=== PATIENT | female | born 1945 | race Caucasian/White ===

== ENCOUNTER 2021-02-18 14:00 | Observation (INO) | payer OTHER, MEDICAID ==
[~2021-02-18] VITALS: Ht 162.6 cm; Wt 87.0 kg
--- NOTE | 2021-02-18 14:19 | PHYS DOC ---
Past Medical History Past Medical History: Bipolar, COPD, Diabetes-Type II, Hypertension, Hypo thyroid, Seizure, Vascular Disease Additional Past Medical Histor: SPINAL STENOSIS, Past Surgical History: Other Additional Past Surgical Histo: UNK Smoking Status: Never Smoker Alcohol Use: None Drug Use: None General Adult EDM: Chief Complaint: MECHANICAL FALL HPI: HPI: Patient is a 75-year-old female that presents today after experiencing a fall. Patient was brought to the emergency department by [facility] fire department from the [facility] [place]. Per the report from EMS patient had an unwitnessed fall when transferring from bed to wheelchair, patient now complaining of right upper arm pain. After speaking to the patient patient states she got up out of bed and everything went black and she fell. Patient has never been to [facility] in the past. Patient also has some redness in her left upper arm she states that is from an injection she received a couple days ago. Review of Systems: Review of Systems: Constitutional: Denies fever or chills. [] Eyes: Denies change in visual acuity. [] HENT: Denies nasal congestion or sore throat. [] Respiratory: Denies cough or shortness of breath. [] Cardiovascular: Denies chest pain or edema. [] GI: Denies abdominal pain, nausea, vomiting, bloody stools or diarrhea. [] : Denies dysuria. [] Musculoskeletal: RIGHT ARM PAIN, Integument: Denies rash. [] Neurologic: Denies headache, focal weakness or sensory changes. [] Endocrine: Denies polyuria or polydipsia. [] Lymphatic: Denies swollen glands. [] Psychiatric: Denies depression or anxiety. [] Heart Score: C/O Chest Pain: N/A Risk Factors: Risk Factors: DM, Current or recent (<one month) smoker, HTN, HLP, family history of CAD, obesity. Risk Scores: Score 0 - 3: 2.5% MACE over next 6 weeks - Discharge Home Score 4 - 6: 20.3% MACE over next 6 weeks - Admit for Clinical Observation Score 7 - 10: 72.7% MACE over next 6 weeks - Early Invasive Strategies Allergies: Allergies: Allergies Coded Allergies Type Severity Reaction Last Updated Verified Penicillins Allergy Unknown 02/18/21 Yes Seroquel Allergy Unknown 02/18/21 Yes Soy Allergy Unknown 02/18/21 Yes Physical Exam: PE: Constitutional: Well developed, well nourished, no acute distress, non-toxic appearance. [] HENT: Normocephalic, atraumatic, bilateral external ears normal, oropharynx moist, no oral exudates, nose normal. [] Eyes: PERRLA, EOMI, conjunctiva normal, no discharge. [] Neck: Normal range of motion, tenderness noted along the left trapizius area, no pain midline. Cardiovascular:Heart rate regular rhythm, no murmur [] Lungs & Thorax: Bilateral breath sounds clear to auscultation [] Abdomen: Bowel sounds normal, soft, no tenderness, no masses, no pulsatile masses. [] Skin: Injection site noted in the left upper arm with erythema noted. Back: No tenderness, no CVA tenderness. [] Extremities: Right upper arm pain with palpation noted, no ecchymosis some swelling noted, radial pulse bilateral arms 2+, cap refill less than 2 seconds, sensory intact distal to injury on the right arm Neurologic: Alert and oriented X 3, normal motor function, normal sensory function, no focal deficits noted. [] Psychologic: Affect normal, judgement normal, mood normal. [] Current Patient Data: Labs: Laboratory Tests Test 02/18/21 14:40 02/18/21 15:30 02/18/21 16:20 White Blood Count 6.5 x10^3/uL Red Blood Count 3.57 x10^6/uL Hemoglobin 12.0 g/dL Hematocrit 34.8 % Mean Corpuscular Volume 97 fL Mean Corpuscular Hemoglobin 34 pg Mean Corpuscular Hemoglobin Concent 35 g/dL Red Cell Distribution Width 13.0 % Platelet Count 169 x10^3/uL Neutrophils (%) (Auto) 54 % Lymphocytes (%) (Auto) 29 % Monocytes (%) (Auto) 13 % Eosinophils (%) (Auto) 3 % Basophils (%) (Auto) 1 % Neutrophils # (Auto) 3.5 x10^3/uL Lymphocytes # (Auto) 1.9 x10^3/uL Monocytes # (Auto) 0.9 x10^3/uL Eosinophils # (Auto) 0.2 x10^3/uL Basophils # (Auto) 0.0 x10^3/uL Sodium Level 135 mmol/L Potassium Level 4.5 mmol/L Chloride Level 99 mmol/L Carbon Dioxide Level 33 mmol/L Anion Gap 3 Blood Urea Nitrogen 10 mg/dL Creatinine 0.8 mg/dL Estimated GFR (Cockcroft-Gault) 69.6 BUN/Creatinine Ratio 13 Glucose Level 120 mg/dL Calcium Level 8.6 mg/dL Total Bilirubin 0.8 mg/dL Aspartate Amino Transf (AST/SGOT) 43 U/L Alanine Aminotransferase (ALT/SGPT) 56 U/L Alkaline Phosphatase 89 U/L Troponin I High Sensitivity < 4 ng/L Total Protein 6.6 g/dL Albumin 3.0 g/dL Albumin/Globulin Ratio 0.8 SARS-CoV-2 Antigen (Rapid) Negative Urine Collection Type Unknown Urine Color Yellow Urine Clarity Clear Urine pH 6.0 Urine Specific [place] <=1.005 Urine Protein Negative mg/dL Urine Glucose (UA) Negative mg/dL Urine Ketones (Stick) Negative mg/dL Urine Blood Moderate Urine Nitrite Negative Urine Bilirubin Negative Urine Urobilinogen Dipstick 0.2 mg/dL Urine Leukocyte Esterase Negative Urine RBC 6-10 /HPF Urine WBC 0 /HPF Urine Squamous Epithelial Cells Few /LPF Urine Bacteria Few /HPF Vital Signs: Vital Signs Date Time Temp Pulse Resp B/P (MAP) Pulse Ox O2 Delivery O2 Flow Rate FiO2 02/18/21 18:07 Room Air 02/18/21 17:37 60 20 152/68 (96) 96 Room Air 02/18/21 16:37 60 16 136/63 (87) 96 Room Air 02/18/21 16:07 56 19 152/68 (96) 97 Room Air 02/18/21 15:37 58 19 161/71 (101) 97 Room Air 02/18/21 15:07 61 19 133/62 (85) 98 Room Air 02/18/21 14:41 62 14 134/74 (94) 94 Room Air 02/18/21 14:00 98.0 66 18 128/60 (82) 98 Room Air 98.0 EKG: EKG: EKG done at [address] Desir at 1417 A. fib rate of 60 [] Radiology/Procedures: Radiology/Procedures: [REASON: fall, right humeral head pain PROCEDURE: HUMERUS RIGHT Right humerus 2 views. HISTORY: Pain, fall 2 views were taken of the right humerus. There is an old healed fracture of the mid to proximal right humerus. An acute fracture is not identified. There is no dislocation at the shoulder. IMPRESSION: 1. Old healed right humerus fracture. 2. No acute fracture noted. Electronically signed by: Andrew Thorpe MD (02/18/2021 2:49 PM) [facility]] PROCEDURE: CHEST AP ONLY AP chest. HISTORY: Fall, right humeral head pain AP view was taken of the chest. Patient's taken a very poor inspiration. There is crowding of the vasculature with mild atelectasis in the lung bases. There are no confluent infiltrates. There is no pneumothorax. Heart is normal in size. IMPRESSION: 1. Poor inspiration. Mild atelectasis without other infiltrates. Electronically signed by: Andrew Thorpe MD (02/18/2021 2:49 PM) [facility] REASON: fall with LOC PROCEDURE: CT HEAD AND CERVICAL SPINE WO Examination: CT head and cervical spine without contrast CT HEAD INDICATION: Reason: fall with LOC / Spl. Instructions: / History: COMPARISON: None Available. Exposure: One or more of the following individualized dose reduction techniques were utilized for this examination: 1. Automated exposure control 2. Adjustment of the mA and/or kV according to patient size 3. Use of iterative reconstruction technique TECHNIQUE: 5 mm contiguous axial images were obtained from the skull base to the vertex in both bone and soft tissue algorithm. FINDINGS: No abnormal attenuation within the brain parenchyma. No evidence of acute intracranial hemorrhage. No extra-axial fluid collections. No mass effect or midline shift. Ventricular size is appropriate. Basal cisterns are patent. No fractures identified.Argueta-white differentiation is preserved.Globes and orbits are within normal limits. Paranasal sinuses and mastoid air cells are clear. CT CERVICAL SPINE INDICATION: Reason: fall with LOC / Spl. Instructions: / History: COMPARISON: None Available. Technique: 2.5 mm contiguous axial images were obtained from the skull base through the cervicothoracic junction in both bone and soft tissue algorithm. Additional sagittal and coronal reconstructions were also performed. FINDINGS: Vertebral body height and alignment are maintained. Cervical lordosis is preserved. The lateral masses of C1 are aligned upon C2. No fractures identified. The bony canal is patent throughout. Moderate intervertebral disc height loss identified in the cervical spine likely degenerative changes. The paraspinous soft tissues are unremarkable. Visualized intracranial contents are unremarkable. Lung apices are clear. IMPRESSION: 1. No acute intracranial findings. 2. No acute fracture cervical spine. 3. Moderate degenerative changes cervical spine. Electronically signed by: Jesus Rodriguez MD (02/18/2021 3:35 PM) [id number] DICTATED and SIGNED BY: JESUS RODRIGUEZ MD DATE: 02/18/21 [id number] 0 Course & Med Decision Making: Course & Med Decision Making Pertinent Labs and Imaging studies reviewed. (See chart for details) 1700 patient up to bedside commode patient states she feels dizzy and feels like she is going to pass out, spoke to Dr. Ambriz with hospitalist group they agreed to admission for syncopal episode. Patient informed of plan of care and she is agreeable for admission status Per the documentation from [facility] patient is a DNR [] Santos Disclaimer: Santos Disclaimer: This electronic medical record was generated, in whole or in part, using a voice recognition dictation system. Departure Departure Impression: Primary Impression: Syncopal episodes Qualified Codes: R55 - Syncope and collapse Disposition: ADMITTED INPATIENT Admitting Physician: BEAR Condition: STABLE LANE ULRICH MOUNTER SMOKING PIPE Feb 18, 2021 14:19
[2021-02-18 14:50] LABS: BASO % 1 % (0-3); EOS # 0.2 x10^3/uL (0.0-0.7); EOS % 3 % (0-3); HEMATOCRIT 34.8 % (36.0-47.0); LYMPH # 1.9 x10^3/uL (1.0-4.8); LYMPH % 29 % (24-48); MEAN CORPUSCULAR HEMOGLOBIN 34 pg (25-35); MEAN CORPUSCULAR HGB CONC 35 g/dL (31-37); MEAN CORPUSCULAR VOLUME 97 fL (79-100); MONO # 0.9 x10^3/uL (0.0-1.1); MONO % 13 % (0-9); NEUT # 3.5 x10^3/uL (1.8-7.7); NEUT % 54 % (31-73); PLATELET COUNT 169 x10^3/uL (140-400); RED BLOOD COUNT 3.57 x10^6/uL (3.50-5.40); WHITE BLOOD COUNT 6.5 x10^3/uL (4.0-11.0)
--- NOTE | 2021-02-18 14:51 | RAD ---
AP chest. HISTORY: Fall, right humeral head pain AP view was taken of the chest. Patient's taken a very poor inspiration. There is crowding of the vas culature with mild atelectasis in the lung bases. There are no confluent infiltrates. There is no pne umothorax. Heart is normal in size. IMPRESSION: 1. Poor inspiration. Mild atelectasis without other infiltrates. Electronically signed by: Andrew Thorpe MD (02/18/2021 2:49 PM) [facility]
--- NOTE | 2021-02-18 14:52 | RAD ---
Right humerus 2 views. HISTORY: Pain, fall 2 views were taken of the right humerus. There is an old healed fracture of the mid to proximal right humerus. An acute fracture is not identified. There is no dislocation at the shoulder. IMPRESSION: 1. Old healed right humerus fracture. 2. No acute fracture noted. Electronically signed by: Andrew Thorpe MD (02/18/2021 2:49 PM) [facility]
[2021-02-18 14:59] LABS: CALCIUM 8.6 mg/dL (8.5-10.1); CREATININE 0.8 mg/dL (0.6-1.0); GFR 69.6; POTASSIUM 4.5 mmol/L (3.5-5.1)
[2021-02-18 15:05] LABS: ALBUMIN/GLOBULIN RATIO 0.8 (1.0-1.7); TOTAL BILIRUBIN 0.8 mg/dL (0.2-1.0); TOTAL PROTEIN 6.6 g/dL (6.4-8.2)
--- NOTE | 2021-02-18 15:37 | RAD ---
Examination: CT head and cervical spine without contrast CT HEAD INDICATION: Reason: fall with LOC / Spl. Instructions: / History: COMPARISON: None Available. Exposure: One or more of the following individualized dose reduction techniques were utilized for thi s examination: 1. Automated exposure control 2. Adjustment of the mA and/or kV according to patient size 3. Use of iterative reconstruction technique TECHNIQUE: 5 mm contiguous axial images were obtained from the skull base to the vertex in both bone and soft tissue algorithm. FINDINGS: No abnormal attenuation within the brain parenchyma. No evidence of acute intracranial hemorrhage. No extra-axial fluid collections. No mass effect or midline shift. Ventricular size is appropriate. Basal cisterns are patent. No fractures identified.Argueta-white differentiation is preserved.Globes and orbits are within normal l imits. Paranasal sinuses and mastoid air cells are clear. CT CERVICAL SPINE INDICATION: Reason: fall with LOC / Spl. Instructions: / History: COMPARISON: None Available. Technique: 2.5 mm contiguous axial images were obtained from the skull base through the cervicothorac ic junction in both bone and soft tissue algorithm. Additional sagittal and coronal reconstructions were also performed. FINDINGS: Vertebral body height and alignment are maintained. Cervical lordosis is preserved. The l ateral masses of C1 are aligned upon C2. No fractures identified. The bony canal is patent throughout. Moderate intervertebral disc height loss identified in the cervical spine likely degenerative changes . The paraspinous soft tissues are unremarkable. Visualized intracranial contents are unremarkable. L jalen apices are clear. IMPRESSION: 1. No acute intracranial findings. 2. No acute fracture cervical spine. 3. Moderate degenerative changes cervical spine. Electronically signed by: Jesus Rodriguez MD (02/18/2021 3:35 PM) [id number]
[2021-02-18 16:36] LABS: BILIRUBIN,URINE NEGATIVE (NEG); CLARITY,URINE CLEAR; COLOR,URINE YELLOW; NITRITE,URINE NEGATIVE (NEG); PROTEIN,URINE NEGATIVE (NEG-TRACE); UROBILINOGEN,URINE 0.2 mg/dL (0.2 mg/dL)
[2021-02-18 16:47] LABS: BACTERIA,URINE FEW /HPF (0-FEW); WBC,URINE 0 /HPF (0-4)
--- NOTE | 2021-02-18 17:27 | EKG ---
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
[2021-02-18 19:15] VITALS: BP 140/65
--- NOTE | 2021-02-18 20:12 | PDOC1 ---
History and Physical Date of Admission Date of Admission DATE: 02/18/21 TIME: 20:08 Identification/Chief Complaint Chief Complaint fall, syncope Source Source: Chart review, Patient History of Present Illness History of Present Illness Ms. Burnette is a 75-year-old female, hard of hearing, [place] resident for dementia, admit for sycope and fall today./ Brought to ER by EMS for a unwitnessed fall when transferring from bed to wheelchair, patient now complaining of right upper arm pain. She says she falls over whenever someone isnt watching her, she states she got up out of bed and everything went black and she fell. Patient has never been to [facility], she normally gets care at [facility]. Past Medical History Cardiovascular: AFIB, HTN Pulmonary: No pertinent hx CENTRAL NERVOUS SYSTEM: Dementia Past Surgical History Past Surgical History: No pertinent history Social History Smoke: No ALCOHOL: none Drugs: None Current Problem List Problem List Problems Medical Problems: (1) Syncopal episodes Status: Acute Allergies Allergies: Coded Allergies: Penicillins (Verified Allergy, Intermediate, 02/18/21) quetiapine (Verified Allergy, Intermediate, 02/18/21) soy (Verified Allergy, Intermediate, 02/18/21) ROS General: No: Chills, Night Sweats, Fatigue, Malaise, Appetite, Other PSYCHOLOGICAL ROS: No: Anxiety, Behavioral Disorder, Concentration difficultie, Decreased libido, Depression, Disorientation, Hallucinations, Hostility, Irritablity, Memory difficulties, Mood Swings, Obsessive thoughts, Physical abuse, Sexual abuse, Sleep disturbances, Suicidal ideation, Other Eyes: No Blurry vision, No Decreased vision, No Double vision, No Dry eyes, No Excessive tearing, No Eye Pain, No Itchy Eyes, No Loss of vision, No Photophobia, No Scotomata, No Uses contacts, No Uses glasses, No Other HEENT: YES: Heacaches; No: Visual Changes, Hearing change, Nasal congestion, Nasal discharge, Oral lesions, Sinus pain, Sore Throat, Epistaxis, Sneezing, Snoring, Tinnitus, Vertigo, Vocal changes, Other Respiratory: No: Cough, Hemoptysis, Orthopnea, Pleuritic Pain, Shortness of breath, SOB with excertion, Sputum Changes, Stridor, Tachypnea, Wheezing, Other Cardiovascular: No Chest Pain, No Palpitations, No Orthopnea, No Paroxysmal Noc. Dyspnea, No Edema, No Lt Headedness, No Other Gastrointestinal: No Nausea, No Vomiting, No Abdominal Pain, No Diarrhea, No Constipation, No Melena, No Hematochezia, No Other Musculoskeletal: Yes Gait Disturbance, Yes Joint Stiffness; No Joint Pain, No Joint Swelling, No Muscle Pain, No Muscular Weakness, No Pain In:, No Swelling In:, No Other Neurological: Yes Gait Disturbance, Yes Impaired Coord/balance; No Behavorial Changes, No Bowel/Bladder ControlChng, No Confusion, No Dizziness, No Headaches, No Memory Loss, No Numbness/Tingling, No Seizures, No Speech Problems, No Tremors, No Visual Changes, No Weakness, No Other Skin: No Dry Skin, No Eczema, No Hair Changes, No Lumps, No Mole Changes, No Mottling, No Nail Changes, No Pruritus, No Rash, No Skin Lesion Changes, No Other, No Acne Physical Exam General: Alert, Cooperative, No acute distress, Other (orietned 3/4, poor recall to some) HEENT: EOMI, Mucous membr. moist/pink Heart: no gallops, no murmurs, irregularly irregular Abdomen: Soft Extremities: No cyanosis, Normal pulses Skin: No significant lesion Neuro: Normal speech, Normal tone, Sensation intact Vitals Vitals Vital Signs Date Time Temp Pulse Resp B/P (MAP) Pulse Ox O2 Delivery O2 Flow Rate FiO2 02/18/21 19:15 97.9 59 18 140/65 (90) 94 Room Air 97.9 Labs Labs Laboratory Tests Test 02/18/21 14:40 02/18/21 15:30 02/18/21 16:20 02/18/21 19:50 White Blood Count 6.5 x10^3/uL (4.0-11.0) Red Blood Count 3.57 x10^6/uL (3.50-5.40) Hemoglobin 12.0 g/dL (12.0-15.5) Hematocrit 34.8 % (36.0-47.0) Mean Corpuscular Volume 97 fL (79-100) Mean Corpuscular Hemoglobin 34 pg (25-35) Mean Corpuscular Hemoglobin Concent 35 g/dL (31-37) Red Cell Distribution Width 13.0 % (11.5-14.5) Platelet Count 169 x10^3/uL (140-400) Neutrophils (%) (Auto) 54 % (31-73) Lymphocytes (%) (Auto) 29 % (24-48) Monocytes (%) (Auto) 13 % (0-9) Eosinophils (%) (Auto) 3 % (0-3) Basophils (%) (Auto) 1 % (0-3) Neutrophils # (Auto) 3.5 x10^3/uL (1.8-7.7) Lymphocytes # (Auto) 1.9 x10^3/uL (1.0-4.8) Monocytes # (Auto) 0.9 x10^3/uL (0.0-1.1) Eosinophils # (Auto) 0.2 x10^3/uL (0.0-0.7) Basophils # (Auto) 0.0 x10^3/uL (0.0-0.2) Sodium Level 135 mmol/L (136-145) Potassium Level 4.5 mmol/L (3.5-5.1) Chloride Level 99 mmol/L (98-107) Carbon Dioxide Level 33 mmol/L (21-32) Anion Gap 3 (6-14) Blood Urea Nitrogen 10 mg/dL (7-20) Creatinine 0.8 mg/dL (0.6-1.0) Estimated GFR (Cockcroft-Gault) 69.6 BUN/Creatinine Ratio 13 (6-20) Glucose Level 120 mg/dL (70-99) Calcium Level 8.6 mg/dL (8.5-10.1) Total Bilirubin 0.8 mg/dL (0.2-1.0) Aspartate Amino Transf (AST/SGOT) 43 U/L (15-37) Alanine Aminotransferase (ALT/SGPT) 56 U/L (14-59) Alkaline Phosphatase 89 U/L (46-116) Troponin I High Sensitivity < 4 ng/L (4-50) Total Protein 6.6 g/dL (6.4-8.2) Albumin 3.0 g/dL (3.4-5.0) Albumin/Globulin Ratio 0.8 (1.0-1.7) SARS-CoV-2 Antigen (Rapid) Negative (NEGATIVE) Urine Collection Type Unknown Urine Color Yellow Urine Clarity Clear Urine pH 6.0 (<5.0-8.0) Urine Specific [place] <=1.005 (1.000-1.030) Urine Protein Negative mg/dL (NEG-TRACE) Urine Glucose (UA) Negative mg/dL (NEG) Urine Ketones (Stick) Negative mg/dL (NEG) Urine Blood Moderate (NEG) Urine Nitrite Negative (NEG) Urine Bilirubin Negative (NEG) Urine Urobilinogen Dipstick 0.2 mg/dL (0.2 mg/dL) Urine Leukocyte Esterase Negative (NEG) Urine RBC 6-10 /HPF (0-2) Urine WBC 0 /HPF (0-4) Urine Squamous Epithelial Cells Few /LPF Urine Bacteria Few /HPF (0-FEW) Glucose (Fingerstick) 100 mg/dL (70-99) Laboratory Tests Test 02/18/21 14:40 02/18/21 15:30 02/18/21 16:20 02/18/21 19:50 White Blood Count 6.5 x10^3/uL (4.0-11.0) Red Blood Count 3.57 x10^6/uL (3.50-5.40) Hemoglobin 12.0 g/dL (12.0-15.5) Hematocrit 34.8 % (36.0-47.0) Mean Corpuscular Volume 97 fL (79-100) Mean Corpuscular Hemoglobin 34 pg (25-35) Mean Corpuscular Hemoglobin Concent 35 g/dL (31-37) Red Cell Distribution Width 13.0 % (11.5-14.5) Platelet Count 169 x10^3/uL (140-400) Neutrophils (%) (Auto) 54 % (31-73) Lymphocytes (%) (Auto) 29 % (24-48) Monocytes (%) (Auto) 13 % (0-9) Eosinophils (%) (Auto) 3 % (0-3) Basophils (%) (Auto) 1 % (0-3) Neutrophils # (Auto) 3.5 x10^3/uL (1.8-7.7) Lymphocytes # (Auto) 1.9 x10^3/uL (1.0-4.8) Monocytes # (Auto) 0.9 x10^3/uL (0.0-1.1) Eosinophils # (Auto) 0.2 x10^3/uL (0.0-0.7) Basophils # (Auto) 0.0 x10^3/uL (0.0-0.2) Sodium Level 135 mmol/L (136-145) Potassium Level 4.5 mmol/L (3.5-5.1) Chloride Level 99 mmol/L (98-107) Carbon Dioxide Level 33 mmol/L (21-32) Anion Gap 3 (6-14) Blood Urea Nitrogen 10 mg/dL (7-20) Creatinine 0.8 mg/dL (0.6-1.0) Estimated GFR (Cockcroft-Gault) 69.6 BUN/Creatinine Ratio 13 (6-20) Glucose Level 120 mg/dL (70-99) Calcium Level 8.6 mg/dL (8.5-10.1) Total Bilirubin 0.8 mg/dL (0.2-1.0) Aspartate Amino Transf (AST/SGOT) 43 U/L (15-37) Alanine Aminotransferase (ALT/SGPT) 56 U/L (14-59) Alkaline Phosphatase 89 U/L (46-116) Troponin I High Sensitivity < 4 ng/L (4-50) Total Protein 6.6 g/dL (6.4-8.2) Albumin 3.0 g/dL (3.4-5.0) Albumin/Globulin Ratio 0.8 (1.0-1.7) SARS-CoV-2 Antigen (Rapid) Negative (NEGATIVE) Urine Collection Type Unknown Urine Color Yellow Urine Clarity Clear Urine pH 6.0 (<5.0-8.0) Urine Specific [place] <=1.005 (1.000-1.030) Urine Protein Negative mg/dL (NEG-TRACE) Urine Glucose (UA) Negative mg/dL (NEG) Urine Ketones (Stick) Negative mg/dL (NEG) Urine Blood Moderate (NEG) Urine Nitrite Negative (NEG) Urine Bilirubin Negative (NEG) Urine Urobilinogen Dipstick 0.2 mg/dL (0.2 mg/dL) Urine Leukocyte Esterase Negative (NEG) Urine RBC 6-10 /HPF (0-2) Urine WBC 0 /HPF (0-4) Urine Squamous Epithelial Cells Few /LPF Urine Bacteria Few /HPF (0-FEW) Glucose (Fingerstick) 100 mg/dL (70-99) VTE Prophylaxis Ordered VTE Prophylaxis Devices: No VTE Pharmacological Prophylaxi: Yes Assessment/Plan Assessment/Plan sycnope, obs on tele 23 hrs. check TSH, follow labs, PT and ot eval ortho statics Dm2, obese, BMI 31 dementia [place] resident Justifications for Admission Other Justification LUCAS PINO MD Feb 18, 2021 20:12
[2021-02-18] MEDS ORDERED: DEXTROSE 50% 25 GM / 50ML DISP.SYRIN. IV PRN (20:15)
[2021-02-18] MEDS ORDERED: DOCUSATE SODIUM 100 MG CAPSULE. PO PRN (20:15)
[2021-02-18] MEDS: ENOXAPARIN 40 MG/0.4 ML SYRINGE. SQ SCH (21:08)
[2021-02-18 23:29] VITALS: BP 125/63
[2021-02-19 03:12] VITALS: BP 139/63
[2021-02-19] MEDS ORDERED: CALCIUM CARBONATE 500 MG TABLET PO PRN (03:15)
[2021-02-19] MEDS ORDERED: BENZ1TAB5 PO (03:20)
[2021-02-19] MEDS ORDERED: LISI2.5T12 PO (03:20)
[2021-02-19] MEDS ORDERED: FLUT16SP NS (03:20)
[2021-02-19] MEDS ORDERED: POTA10TA12 PO (03:20)
[2021-02-19] MEDS ORDERED: DIVA500T4 PO (03:20)
[2021-02-19] MEDS ORDERED: TRAZ-118 PO (03:20)
[2021-02-19] MEDS ORDERED: NICO1PAT21 TP (03:20)
[2021-02-19] MEDS ORDERED: ARIP15TA3 PO (03:20)
[2021-02-19] MEDS ORDERED: FLUT1BLS3 IH (03:20)
[2021-02-19] MEDS ORDERED: MELA3TAB43 PO (03:20)
[2021-02-19] MEDS ORDERED: SITA50TA PO (03:20)
[2021-02-19] MEDS ORDERED: CALC500T31 PO (03:20)
[2021-02-19] MEDS ORDERED: ASPI-630 PO (03:20)
[2021-02-19] MEDS ORDERED: GABA400C7 PO (03:20)
[2021-02-19] MEDS ORDERED: METF10007 PO (03:20)
[2021-02-19 07:00] VITALS: BP 139/63
[2021-02-19] MEDS: BUDESONIDE 0.5 MG/2 ML NEBU. NEB SCH ×2 (07:38→20:24)
[2021-02-19] MEDS: IPRATRPIUM/ALBUTEROL 0.5/2.5MG 3 ML NEBU. NEB SCH ×4 (07:38→20:24)
[2021-02-19] MEDS: INSULIN LISPRO 300 UNITS/3 ML VIAL. SQ SCH ×3 (08:00→17:00)
[2021-02-19] MEDS: NICOTINE 21MG PATCH. TD SCH (08:30)
[2021-02-19] MEDS: ASPIRIN CHEWABLE 81 MG TABLET. PO SCH (08:32)
[2021-02-19] MEDS: BENZTROPINE MESYLATE 1 MG TABLET. PO SCH ×2 (08:32→21:08)
[2021-02-19] MEDS: POTASSIUM CHLORIDE 10 MEQ TABLET.ER. PO SCH (08:32)
[2021-02-19] MEDS: GABAPENTIN 400 MG CAPSULE. PO SCH ×3 (08:35→21:08)
[2021-02-19] MEDS: ARIPiprazole 5 MG TABLET PO SCH (08:35)
[2021-02-19] MEDS: LINAGLIPTIN 5 MG TABLET PO SCH (08:36)
[2021-02-19] MEDS: LISINOPRIL 5 MG TABLET. PO SCH (08:36)
[2021-02-19] MEDS: FLUTICASONE 50MCG/NASAL SPRAY 16GM BOTTLE. NS SCH (08:37)
[2021-02-19] MEDS: metFORMIN 500 MG TABLET PO SCH ×2 (08:38→15:43)
--- NOTE | 2021-02-19 10:47 | NUR ---
SW following. Discussed with RN. 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 PT/OT ordered. [facility] will continue to follow.
[2021-02-19 11:00] VITALS: BP 154/72
--- NOTE | 2021-02-19 13:18 | PDOC ---
[facility] PROGRESS NOTE Date of Service DOS: DATE: 02/19/21 TIME: 13:17 Chief Complaint Chief Complaint sycnope, obs on tele check TSH, follow labs, PT and ot eval. ortho statics Dm2, obese, BMI 31 dementia [place] resident History of Present Illness History of Present Illness History of Present Illness Ms. Burnette is a 75-year-old female, hard of hearing, [place] resident for dementia, admit for sycope and fall today./ Brought to ER by EMS for a unwitnessed fall when transferring from bed to wheelchair, patient now complaining of right upper arm pain. She says she falls over whenever someone isnt watching her, she states she got up out of bed and everything went black and she fell. Patient has never been to [facility], she normally gets care at [facility]. o. 02/19 Patient evaluated and examined at bedside. Not a very good historian. Syncope work-up pretty negative overall thus far. Will have PT OT see patient. Suspect she can likely return to her long-term care facility tomorrow Vitals/I&O Vitals/I&O: Vital Signs Date Time Temp Pulse Resp B/P (MAP) Pulse Ox O2 Delivery O2 Flow Rate FiO2 02/19/21 11:26 98 Room Air 02/19/21 11:00 97.5 78 18 154/72 (99) 97.5 I & O 02/18/21 02/18/21 02/19/21 15:00 23:00 07:00 Intake Total 240 ml 180 ml Output Total 250 ml Balance -10 ml 180 ml Physical Exam General: Alert, Cooperative, No acute distress, Other (orietned 3/4, poor recall to some) Abdomen: Soft Extremities: No cyanosis, Normal pulses Skin: No significant lesion Labs Labs: Laboratory Tests Test 02/18/21 14:40 02/18/21 15:30 02/18/21 16:20 02/18/21 19:50 White Blood Count 6.5 x10^3/uL (4.0-11.0) Red Blood Count 3.57 x10^6/uL (3.50-5.40) Hemoglobin 12.0 g/dL (12.0-15.5) Hematocrit 34.8 % (36.0-47.0) Mean Corpuscular Volume 97 fL (79-100) Mean Corpuscular Hemoglobin 34 pg (25-35) Mean Corpuscular Hemoglobin Concent 35 g/dL (31-37) Red Cell Distribution Width 13.0 % (11.5-14.5) Platelet Count 169 x10^3/uL (140-400) Neutrophils (%) (Auto) 54 % (31-73) Lymphocytes (%) (Auto) 29 % (24-48) Monocytes (%) (Auto) 13 % (0-9) Eosinophils (%) (Auto) 3 % (0-3) Basophils (%) (Auto) 1 % (0-3) Neutrophils # (Auto) 3.5 x10^3/uL (1.8-7.7) Lymphocytes # (Auto) 1.9 x10^3/uL (1.0-4.8) Monocytes # (Auto) 0.9 x10^3/uL (0.0-1.1) Eosinophils # (Auto) 0.2 x10^3/uL (0.0-0.7) Basophils # (Auto) 0.0 x10^3/uL (0.0-0.2) Sodium Level 135 mmol/L (136-145) Potassium Level 4.5 mmol/L (3.5-5.1) Chloride Level 99 mmol/L (98-107) Carbon Dioxide Level 33 mmol/L (21-32) Anion Gap 3 (6-14) Blood Urea Nitrogen 10 mg/dL (7-20) Creatinine 0.8 mg/dL (0.6-1.0) Estimated GFR (Cockcroft-Gault) 69.6 BUN/Creatinine Ratio 13 (6-20) Glucose Level 120 mg/dL (70-99) Calcium Level 8.6 mg/dL (8.5-10.1) Total Bilirubin 0.8 mg/dL (0.2-1.0) Aspartate Amino Transf (AST/SGOT) 43 U/L (15-37) Alanine Aminotransferase (ALT/SGPT) 56 U/L (14-59) Alkaline Phosphatase 89 U/L (46-116) Troponin I High Sensitivity < 4 ng/L (4-50) Total Protein 6.6 g/dL (6.4-8.2) Albumin 3.0 g/dL (3.4-5.0) Albumin/Globulin Ratio 0.8 (1.0-1.7) SARS-CoV-2 RNA (JONH) Negative (Negative) SARS-CoV-2 Antigen (Rapid) Negative (NEGATIVE) Urine Collection Type Unknown Urine Color Yellow Urine Clarity Clear Urine pH 6.0 (<5.0-8.0) Urine Specific [place] <=1.005 (1.000-1.030) Urine Protein Negative mg/dL (NEG-TRACE) Urine Glucose (UA) Negative mg/dL (NEG) Urine Ketones (Stick) Negative mg/dL (NEG) Urine Blood Moderate (NEG) Urine Nitrite Negative (NEG) Urine Bilirubin Negative (NEG) Urine Urobilinogen Dipstick 0.2 mg/dL (0.2 mg/dL) Urine Leukocyte Esterase Negative (NEG) Urine RBC 6-10 /HPF (0-2) Urine WBC 0 /HPF (0-4) Urine Squamous Epithelial Cells Few /LPF Urine Bacteria Few /HPF (0-FEW) Glucose (Fingerstick) 100 mg/dL (70-99) Test 02/19/21 07:36 02/19/21 11:35 Glucose (Fingerstick) 122 mg/dL (70-99) 117 mg/dL (70-99) Assessment and Plan Assessmemt and Plan Problems Medical Problems: (1) Syncopal episodes Status: Acute Comment Review of Relevant I have reviewed the following items bell (where applicable) has been applied. Medications: Current Medications Medications (Trade) Dose Ordered Sig/Sophie Route PRN Reason Start Time Stop Time Status Last Admin Dose Admin Enoxaparin Sodium (Lovenox 40mg Syringe) 40 mg Q24H SQ 02/18/21 21:00 02/18/21 21:08 Aspirin (Aspirin Chewable) 81 mg DAILY PO 02/19/21 09:00 02/19/21 08:32 Benztropine Mesylate (Cogentin) 1 mg BID PO 02/19/21 09:00 02/19/21 08:32 Gabapentin (Neurontin) 400 mg TID PO 02/19/21 09:00 02/19/21 08:35 Nicotine (Nicoderm Cq 21mg) 1 patch DAILY TD 02/19/21 09:00 02/19/21 08:30 Potassium Chloride (Klor-Con) 10 meq DAILY08 PO 02/19/21 08:00 02/19/21 08:32 Aripiprazole (Abilify) 15 mg DAILY PO 02/19/21 09:00 02/19/21 08:35 Albuterol/ Ipratropium (Duoneb) 3 ml RTQID NEB 02/19/21 08:00 02/19/21 11:26 Lisinopril (Prinivil) 2.5 mg DAILY PO 02/19/21 09:00 02/19/21 08:36 Metformin HCl (Glucophage) 1,000 mg BIDWMEALS PO 02/19/21 08:00 02/19/21 08:38 Linagliptin (Tradjenta) 5 mg DAILY PO 02/19/21 09:00 02/19/21 08:36 Budesonide (Pulmicort) 0.5 mg RTBID NEB 02/19/21 08:00 02/19/21 07:38 Justifications for Admission Other Justification TINO THOMAS MD Feb 19, 2021 13:18
[2021-02-19 15:00] VITALS: BP 155/68
[2021-02-19 19:00] VITALS: BP_SYST 144; BP_SYST 156; BP_SYST 169; BP_DIAS 117; BP_DIAS 88; BP_DIAS 99
[2021-02-19] MEDS ORDERED: NON FORMULARY ITEM (Melatonin 1 TAB) PO SCH (21:00)
[2021-02-19] MEDS ORDERED: DIVALPROEX EXTENDED RELEASE 500 MG TAB.ER.24H. PO SCH (21:00)
[2021-02-19] MEDS ORDERED: traZODone 50 MG TABLET. PO SCH (21:00)
[2021-02-19] MEDS: ENOXAPARIN 40 MG/0.4 ML SYRINGE. SQ SCH (21:07)
[2021-02-19] MEDS: ACETAMINOPHEN 325 MG TABLET. PO PRN (21:46)
[2021-02-19 22:52] VITALS: BP 134/66
[2021-02-20 03:17] VITALS: BP 145/61
[2021-02-20] MEDS: ACETAMINOPHEN 325 MG TABLET. PO PRN (05:24)
[2021-02-20 07:00] VITALS: BP 178/69
[2021-02-20] MEDS: INSULIN LISPRO 300 UNITS/3 ML VIAL. SQ SCH ×2 (08:00→12:00)
[2021-02-20] MEDS: IPRATRPIUM/ALBUTEROL 0.5/2.5MG 3 ML NEBU. NEB SCH ×2 (08:21→11:42)
[2021-02-20] MEDS: BUDESONIDE 0.5 MG/2 ML NEBU. NEB SCH (08:21)
[2021-02-20] MEDS: NICOTINE 21MG PATCH. TD SCH (08:36)
[2021-02-20] MEDS: LINAGLIPTIN 5 MG TABLET PO SCH (08:36)
[2021-02-20] MEDS: BENZTROPINE MESYLATE 1 MG TABLET. PO SCH (08:36)
[2021-02-20] MEDS: ARIPiprazole 5 MG TABLET PO SCH (08:36)
[2021-02-20 08:37] VITALS: BP 145/61
[2021-02-20] MEDS: ASPIRIN CHEWABLE 81 MG TABLET. PO SCH (08:37)
[2021-02-20] MEDS: POTASSIUM CHLORIDE 10 MEQ TABLET.ER. PO SCH (08:37)
[2021-02-20] MEDS: metFORMIN 500 MG TABLET PO SCH (08:37)
[2021-02-20] MEDS: LISINOPRIL 5 MG TABLET. PO SCH (08:37)
[2021-02-20] MEDS: GABAPENTIN 400 MG CAPSULE. PO SCH (08:37)
[2021-02-20] MEDS: FLUTICASONE 50MCG/NASAL SPRAY 16GM BOTTLE. NS SCH (09:00)
--- NOTE | 2021-02-20 09:48 | SNU/HH DC ---
DISCHARGE ORDERS DISCHARGE INFORMATION: DISCHARGE DATE: Feb 20, 2021 FINAL DIAGNOSIS Problems Medical Problems: (1) Syncopal episodes Status: Acute CONDITION ON DISCHARGE: Stable CODE STATUS: Code Status: DNR/DNI SENIOR CARE: SNF STAY <30 DAYS: No POST DISCHARGE ORDERS: ACTIVITY ORDERS: Activity as tolerated WEIGHT BEARING STATUS: As tolerated DIET AFTER DISCHARGE: ADA CHECKS AFTER DISCHARGE: CHECKS AFTER DISCHARGE: Check blood press - daily, Check blood sugar, ac/hs, Check your Temp as needed TREATMENT/EQUIPMENT ORDERS: ADAPTIVE EQUIPMENT NEEDED: Walker Physical Therapy For: Evalulation/Treatment Occupational Therapy For: Evaluation/Treatment DISCHARGE MEDICATIONS: Home Meds Reported Medications Fluticasone/Umeclidin/Vilanter (Trelegy Ellipta 100-62.5-25) 1 Each Blst.w.dev, 1 EACH IH DAILY for SOA 02/19/21 Trazodone Hcl (TRAZODONE HCL) 50 Mg Tablet, 1 TAB PO QHS for ., #30 TAB 1 Refill 02/19/21 Sitagliptin Phosphate (JANUVIA) 50 Mg Tablet, 1 TAB PO DAILY for ., #30 TAB 5 Refills 02/19/21 Potassium Chloride (POTASSIUM CHLORIDE ) 10 Meq Tab.sr.24h, 10 MEQ PO DAILY for SUPPLEMENT, TAB.SR 02/19/21 Nicotine (NICODERM CQ 21mg) 1 Each Patch.td24, 1 PATCH TP DAILY for ., #28 PATCH 1 Refill 02/19/21 Melatonin (MELATONIN) 3 Mg Tab.rapdis, 1 TAB PO QHS for sleep for 30 Days, #30 TAB 0 Refills 02/19/21 Lisinopril (LISINOPRIL) 2.5 Mg Tablet, 1 TAB PO DAILY for HTN, #30 TAB 5 Refills 02/19/21 Metformin Hcl (METFORMIN HCL) 1,000 Mg Tablet, 1000 MG PO BID for ANTI-DIABETIC, TAB 0 Refills 02/19/21 Gabapentin (Gabapentin) 400 Mg Capsule, 400 MG PO TID for nerve pain, CAP 02/19/21 Fluticasone Propionate (FLUTICASONE PROPIONATE NASAL SPRAY) 16 Gm [place].susp, 1 SPRAY NS DAILY for Allergies, #1 INHALER 11 Refills 02/19/21 Divalproex Sodium (DEPAKOTE ER) 500 Mg Tab.er.24h, 1 TAB PO QHS for Bipolar, #60 TAB 2 Refills 02/19/21 Calcium Carbonate (CALCIUM CARBONATE) 500 Mg Tablet, 1 TAB PO PRN Q8HRS PRN for HEARTBURN / GAS for 30 Days, TAB 0 Refills 02/19/21 Benztropine Mesylate (BENZTROPINE MESYLATE) 1 Mg Tablet, 1 TAB PO BID for tremors, #60 TAB 02/19/21 Aspirin (ASPIRIN) 81 Mg Tab.chew, 1 TAB PO DAILY for ., #30 TAB 3 Refills 02/19/21 Aripiprazole (ABILIFY) 15 Mg Tablet, 1 TAB PO DAILY for Bipolar for 30 Days, #30 TAB 0 Refills 02/19/21 TINO THOMAS MD Feb 20, 2021 09:48
--- NOTE | 2021-02-20 09:53 | PDOC3 ---
[facility]-Discharge Summary Date of Admission: Date of Admission: Feb 18, 2021 Date of Discharge: Date of Discharge: Feb 20, 2021 Admission Diagnosis: Problems: (1) Syncopal episodes Discharge Diagnosis: Discharge Diagnosis: Same Hospital Course: Hospital Course: History of Present Illness Ms. Burnette is a 75-year-old female, hard of hearing, [place] resident for dementia, admit for sycope and fall today./ Brought to ER by EMS for a unwitnessed fall when transferring from bed to wheelchair, patient now complaining of right upper arm pain. She says she falls over whenever someone isnt watching her, she states she got up out of bed and everything went black and she fell. [facility], she normally gets care at [facility]. o. 02/19 Patient evaluated and examined at bedside. Not a very good historian. Syncope work-up pretty negative overall thus far. Will have PT OT see patient. Suspect she can likely return to her long-term care facility tomorrow 02/20 Patient evaluated examined at bedside. Syncopal work-up essentially negative. Worked with PT OT cleared her to go back to her facility. Will discharge today. Spent greater than 35 minutes on this discharge Approximately 17 minutes of advance care planning discussed with patient Disposition: Disposition/Orders: D/C to Another Facility Activity: Activity: Resume previous activity Diet: Diet: other (Diabetic) Medications: Home Meds Reported Medications Fluticasone/Umeclidin/Vilanter (Trelegy Ellipta 100-62.5-25) 1 Each Blst.w.dev, 1 EACH IH DAILY for SOA 02/19/21 Trazodone Hcl (TRAZODONE HCL) 50 Mg Tablet, 1 TAB PO QHS for ., #30 TAB 1 Refill 02/19/21 Sitagliptin Phosphate (JANUVIA) 50 Mg Tablet, 1 TAB PO DAILY for ., #30 TAB 5 Refills 02/19/21 Potassium Chloride (POTASSIUM CHLORIDE ) 10 Meq Tab.sr.24h, 10 MEQ PO DAILY for SUPPLEMENT, TAB.SR 02/19/21 Nicotine (NICODERM CQ 21mg) 1 Each Patch.td24, 1 PATCH TP DAILY for ., #28 PATCH 1 Refill 02/19/21 Melatonin (MELATONIN) 3 Mg Tab.rapdis, 1 TAB PO QHS for sleep for 30 Days, #30 TAB 0 Refills 02/19/21 Lisinopril (LISINOPRIL) 2.5 Mg Tablet, 1 TAB PO DAILY for HTN, #30 TAB 5 Refills 02/19/21 Metformin Hcl (METFORMIN HCL) 1,000 Mg Tablet, 1000 MG PO BID for ANTI-DIABETIC, TAB 0 Refills 02/19/21 Gabapentin (Gabapentin) 400 Mg Capsule, 400 MG PO TID for nerve pain, CAP 02/19/21 Fluticasone Propionate (FLUTICASONE PROPIONATE NASAL SPRAY) 16 Gm [place].susp, 1 SPRAY NS DAILY for Allergies, #1 INHALER 11 Refills 02/19/21 Divalproex Sodium (DEPAKOTE ER) 500 Mg Tab.er.24h, 1 TAB PO QHS for Bipolar, #60 TAB 2 Refills 02/19/21 Calcium Carbonate (CALCIUM CARBONATE) 500 Mg Tablet, 1 TAB PO PRN Q8HRS PRN for HEARTBURN / GAS for 30 Days, TAB 0 Refills 02/19/21 Benztropine Mesylate (BENZTROPINE MESYLATE) 1 Mg Tablet, 1 TAB PO BID for tremors, #60 TAB 02/19/21 Aspirin (ASPIRIN) 81 Mg Tab.chew, 1 TAB PO DAILY for ., #30 TAB 3 Refills 02/19/21 Aripiprazole (ABILIFY) 15 Mg Tablet, 1 TAB PO DAILY for Bipolar for 30 Days, #30 TAB 0 Refills 02/19/21 Scheduled Aripiprazole (Abilify), 1 TAB PO DAILY, (Reported) Aspirin (Aspirin), 1 TAB PO DAILY, (Reported) Benztropine Mesylate (Benztropine Mesylate), 1 TAB PO BID, (Reported) Divalproex Sodium (Depakote Er), 1 TAB PO QHS, (Reported) Fluticasone Propionate (Fluticasone Propionate Nasal [place]), 1 SPRAY NS DAILY, (Reported) Fluticasone/Umeclidin/Vilanter (Trelegy Ellipta 100-62.5-25), 1 EACH IH DAILY, (Reported) Gabapentin (Gabapentin), 400 MG PO TID, (Reported) Lisinopril (Lisinopril), 1 TAB PO DAILY, (Reported) Melatonin (Melatonin), 1 TAB PO QHS, (Reported) Metformin Hcl (Metformin Hcl), 1,000 MG PO BID, (Reported) Nicotine (NICODERM CQ 21mg), 1 PATCH TP DAILY, (Reported) Potassium Chloride (Potassium Chloride ), 10 MEQ PO DAILY, (Reported) Sitagliptin Phosphate (Januvia), 1 TAB PO DAILY, (Reported) Trazodone Hcl (Trazodone Hcl), 1 TAB PO QHS, (Reported) Scheduled PRN Calcium Carbonate (Calcium Carbonate), 1 TAB PO PRN Q8HRS PRN for HEARTBURN / GAS, (Reported) Justicifation of Admission Dx: Justifications for Admission: Justification of Admission Dx: Yes (Syncope) TINO THOMAS MD Feb 20, 2021 09:53
--- NOTE | 2021-02-20 10:44 | NUR ---
SW following. Discussed with RN, discharge orders for pt to return to [facility]. [facility] collected packet due to their fax machine not working. Transportation arranged for 1230. RN notified. No further SW needs.
--- NOTE | 2021-02-20 12:16 | NUR ---
Patient removed from athletic monitor and IV removed by nurse in preparation for transfer @[id number]
--- NOTE | 2021-02-20 13:59 | NUR ---
Patient taken by transport team to [facility]
== END 2021-02-20 13:00 ==
LOC: ER 14:00 → 5 SOUTH 17:05 → INTOOBSV 17:05 → 5 SOUTH 18:50
PROVIDERS: ADMIT Internal Medicine; ATTEND Internal Medicine
DX: R55 Syncope and collapse (principal); Z20.822 Contact with and (suspected) exposure to COVID-19; I10 Essential (primary) hypertension; I48.91 Unspecified atrial fibrillation; F03.90 Unspecified dementia, unspecified severity, without behavioral disturbance, psychotic disturbance, mood disturbance, and anxiety; E03.9 Hypothyroidism, unspecified; E11.9 Type 2 diabetes mellitus without complications; E66.9 Obesity, unspecified; H91.90 Unspecified hearing loss, unspecified ear; J44.9 Chronic obstructive pulmonary disease, unspecified; J98.11 Atelectasis; F31.9 Bipolar disorder, unspecified; Z68.31 Body mass index [BMI] 31.0-31.9, adult; Z79.84 Long term (current) use of oral hypoglycemic drugs; W18.30XA Fall on same level, unspecified, initial encounter; Y92.89 Other specified places as the place of occurrence of the external cause; Y93.89 Activity, other specified; Y99.8 Other external cause status
CPT/HCPCS: 36415; 70450; 71045; 72125; 73060; 80053; 81001; 82962; 84484; 85025; 87426; 93005; 94640; 94760; 96372; 97110; 97116; 97162; 97166; 97535; 99285; G0378; G0379; J1650; J1815; J7626; U0003; U0005